=== PATIENT | male | born 1985 | race Caucasian/White ===

== ENCOUNTER 2018-05-01 12:47 | Emergency (ER) | payer OTHER | END 2018-05-01 13:09 | disposition home or self-care (01) | LOC: EDH 12:47 | DX: Z00.00 Encounter for general adult medical examination without abnormal findings (principal) | CPT/HCPCS: 99281 ==

== ENCOUNTER 2018-11-14 13:48 | Emergency (ER) | payer SELFPAY ==
[2018-11-14] MEDS ORDERED: KETOROLAC TROMETHAMINE 60 MG/2 ML VIAL ONE (14:04)
== END 2018-11-14 14:46 | disposition home or self-care (01) ==
LOC: EDH 13:48
DX: M25.572 Pain in left ankle and joints of left foot (principal); Z72.0 Tobacco use
CPT/HCPCS: 73600; 96372; 99283; J1885

== ENCOUNTER 2018-12-16 13:42 | Emergency (ER) | payer OTHER ==
[2018-12-16] MEDS ORDERED: KETOROLAC TROMETHAMINE 30MG/ML ONE (14:26)
== END 2018-12-16 15:00 | disposition home or self-care (01) ==
LOC: EDH 13:42
DX: M25.572 Pain in left ankle and joints of left foot (principal); Z72.0 Tobacco use
CPT/HCPCS: 96372 ×2; 99283; J1030; J1885

== ENCOUNTER 2021-10-16 16:55 | Emergency (ER) | payer OTHER ==
[~2021-10-16] VITALS: Ht 167.6 cm; Wt 56.7 kg
[2021-10-16] MEDS ORDERED: CLINDAMYCIN IVPB 900MG/50ML 50 ML IV STA (17:31)
[2021-10-16 17:40] LABS: BASOPHILS % (AUTO) 0.3 % (0.0-5.0); EOSINOPHILS % (AUTO) 0.3 % (0.0-8.0); HEMATOCRIT 42.2 % (42-54); LYMPHOCYTES % (AUTO) 7.8 % (21.0-51.0); MEAN CORPUSCULAR HGB CONC 34.1 g/dL (32.0-36.0); MEAN CORPUSCULAR VOLUME 85.1 fL (79-99); MONOCYTES % (AUTO) 9.1 % (3.0-13.0); NEUTROPHILS % (AUTO) 82.1 % (40.0-77.0); PLATELET COUNT (AUTO) 233 K/uL (130-400); RED BLOOD CELL COUNT(AUTO) 4.96 MIL/uL (4.50-6.20); RED CELL DISTRIBUTION WIDTH 13.2 % (11.0-15.5); WHITE BLOOD COUNT (AUTO) 17.6 K/uL (4.8-10.8)
[2021-10-16 17:49] LABS: CREATININE 0.9 mg/dL (0.5-1.5); POTASSIUM 3.7 mmol/L (3.5-5.1)
[2021-10-16 17:54] LABS: ALBUMIN 3.9 g/dL (3.5-5.0); BILIRUBIN,TOTAL 0.6 mg/dL (0.2-1.0); CRP QUANTITATIVE 115.2 mg/L (0.00-9.0); TOTAL PROTEIN, SERUM 7.7 g/dL (6.0-8.3)
[2021-10-16] MEDS ORDERED: IOHEXOL-350 75 ML VIAL IV ONE (17:59)
[2021-10-16] MEDS ORDERED: ONDANSETRON 4MG INJ IVP ONE (18:00)
[2021-10-16] MEDS ORDERED: MORPHINE 4 MG SYG IM ONE (18:00)
[2021-10-16] MEDS ORDERED: 0.9%NACL 1000ML 1,000 ML IV ONE (18:00)
[2021-10-16 18:26] LABS: APPEARANCE,URINE Clear (CLEAR); BILIRUBIN,URINE Small (NEGATIVE); COLOR,URINE Dark Yellow (YELLOW); GLUCOSE, URINE (UA) Negative (NEGATIVE); KETONES,URINE Trace mg/dL (NEGATIVE); LEUKOCYTE ESTERASE ,URINE Trace (NEGATIVE); NITRATE,URINE Negative (NEGATIVE); OCCULT BLOOD,URINE Negative (NEGATIVE); PROTEIN,URINE POS 2+ mg/dL (NEGATIVE)
[2021-10-16 18:40] LABS: BACTERIA,URINE Few /HPF (None Seen); MUCUS,URINE Moderate LPF (None Seen); SQUAMOUS EPITHELIAL CELL,UR Few /HPF (0-2)
[2021-10-16 19:49] VITALS: BP 129/53
[2021-10-16] MEDS ORDERED: IBUP-2070 PO (20:49)
[2021-10-16] MEDS ORDERED: CLIN-141 PO (20:49)
== END 2021-10-16 20:58 | disposition left against medical advice (07) ==
LOC: EDH 16:55
DX: L02.31 Cutaneous abscess of buttock (principal); D72.829 Elevated white blood cell count, unspecified; Z20.822 Contact with and (suspected) exposure to COVID-19; Z79.1 Long term (current) use of non-steroidal anti-inflammatories (NSAID); Z79.899 Other long term (current) drug therapy
CPT/HCPCS: 36415; 72193; 80053; 81001; 83605; 84484; 85025; 86140; 87040 ×2; 87088; 87635; 96365; 96372; 96375; 99285; C9803; J2270; J2405; J3490; J7030; Q9967

== ENCOUNTER 2021-10-18 22:51 | Inpatient (IN) | payer OTHER ==
[~2021-10-18] VITALS: Ht 167.6 cm; Wt 58.2 kg
[~2021-10-18 22:51] MED LIST: CLIN-141 PO; IBUP-2070 PO
[2021-10-18 23:35] LABS: BASOPHILS % (AUTO) 0.3 % (0.0-5.0); EOSINOPHILS % (AUTO) 0.7 % (0.0-8.0); HEMATOCRIT 38.8 % (42-54); LYMPHOCYTES % (AUTO) 15.2 % (21.0-51.0); MEAN CORPUSCULAR HGB CONC 34.5 g/dL (32.0-36.0); MEAN CORPUSCULAR VOLUME 81.2 fL (79-99); MONOCYTES % (AUTO) 10.3 % (3.0-13.0); NEUTROPHILS % (AUTO) 73.2 % (40.0-77.0); PLATELET COUNT (AUTO) 342 K/uL (130-400); RED BLOOD CELL COUNT(AUTO) 4.78 MIL/uL (4.50-6.20); RED CELL DISTRIBUTION WIDTH 12.9 % (11.0-15.5); WHITE BLOOD COUNT (AUTO) 11.6 K/uL (4.8-10.8)
[2021-10-18 23:35] LABS: APPEARANCE,URINE Clear (CLEAR); BILIRUBIN,URINE Negative (NEGATIVE); COLOR,URINE Yellow (YELLOW); GLUCOSE, URINE (UA) Negative (NEGATIVE); KETONES,URINE 40 mg/dL (NEGATIVE); LEUKOCYTE ESTERASE ,URINE Negative (NEGATIVE); NITRATE,URINE Negative (NEGATIVE); OCCULT BLOOD,URINE Negative (NEGATIVE); PROTEIN,URINE Trace mg/dL (NEGATIVE)
[2021-10-18] MEDS ORDERED: ZOSYN 3.375GM +NS 50ML IV STA (23:45)
[2021-10-18] MEDS ORDERED: VANCOMYCIN KIT 1 GM/250 ML IV.KIT IV ONE (23:45)
[2021-10-18 23:46] LABS: CREATININE 0.9 mg/dL (0.5-1.5); POTASSIUM 3.2 mmol/L (3.5-5.1)
[2021-10-18 23:48] LABS: INR 1.14 (0.85-1.15); PROTHROMBIN TIME 12.3 SEC (9.6-11.6)
[2021-10-18 23:50] LABS: PARTIAL THROMBOPLASTIN TIME 29.6 SEC (26.3-35.5)
[2021-10-18 23:51] LABS: ALBUMIN 3.6 g/dL (3.5-5.0); BILIRUBIN,TOTAL 0.6 mg/dL (0.2-1.0); TOTAL PROTEIN, SERUM 7.8 g/dL (6.0-8.3)
[2021-10-19] MEDS ORDERED: VANCOMYCIN PROTOCOL PER PHARMACY IV PRN
[2021-10-19] MEDS ORDERED: ONDANSETRON 4MG INJ IV PRN
[2021-10-19] MEDS ORDERED: LACTATED RINGERS 1000ML 1,000 ML IV SCH
[2021-10-19 00:18] LABS: RBC,URINE 0-1 /HPF (0-1); WBC,URINE 0-1 /HPF (0-1)
[2021-10-19 00:19] LABS: BACTERIA,URINE None Seen /HPF (None Seen); SQUAMOUS EPITHELIAL CELL,UR None Seen /HPF (0-2)
[2021-10-19] MEDS ORDERED: KCL 20 MEQ ERTAB PO ONE (01:30)
[2021-10-19] MEDS ORDERED: NICOTINE 21 MG/ 24 HR PATCH TD PRN (01:30)
[2021-10-19] MEDS: ZOSYN 3.375GM+NS 50ML 50 ML IV SCH ×3 (04:53→21:00)
[2021-10-19 06:18] LABS: BASOPHILS % (AUTO) 0.5 % (0.0-5.0); EOSINOPHILS % (AUTO) 0.9 % (0.0-8.0); HEMATOCRIT 38.5 % (42-54); LYMPHOCYTES % (AUTO) 16.9 % (21.0-51.0); MEAN CORPUSCULAR HGB CONC 33.8 g/dL (32.0-36.0); MEAN CORPUSCULAR VOLUME 82.8 fL (79-99); MONOCYTES % (AUTO) 9.9 % (3.0-13.0); NEUTROPHILS % (AUTO) 71.5 % (40.0-77.0); PLATELET COUNT (AUTO) 323 K/uL (130-400); RED BLOOD CELL COUNT(AUTO) 4.65 MIL/uL (4.50-6.20); WHITE BLOOD COUNT (AUTO) 9.2 K/uL (4.8-10.8)
[2021-10-19 06:25] LABS: INR 1.15 (0.85-1.15); PROTHROMBIN TIME 12.4 SEC (9.6-11.6)
[2021-10-19 06:27] LABS: PARTIAL THROMBOPLASTIN TIME 30.1 SEC (26.3-35.5)
[2021-10-19 06:30] LABS: CREATININE 0.7 mg/dL (0.5-1.5); PHOSPHORUS 3.7 mg/dL (2.5-4.9); POTASSIUM 3.9 mmol/L (3.5-5.1)
[2021-10-19] MEDS ORDERED: VANCOMYCIN 1.5GM/NS 250ML IV SCH ×2 (08:30)
[2021-10-19] MEDS: FAMOTIDINE 20MG VIAL IV SCH ×2 (08:55→21:00)
[2021-10-19] MEDS ORDERED: 0.9%NACL 50ML 50 ML IV ONE ×2 (13:08→20:27)
[2021-10-19] MEDS ORDERED: LACTULOSE 20 GM/30 ML UDCUP PO ONE (13:30)
[2021-10-19] MEDS: FLUCONAZOLE 200 MG/NS 100 ML 100 ML IV SCH (14:15)
[2021-10-19] MEDS ORDERED: 0.9%NACL 1000ML 1,000 ML IV ONE (20:26)
[2021-10-19] MEDS: VANCOMYCIN 750MG VIAL IVPB SCH (23:25)
[2021-10-20] MEDS ORDERED: DIPHENHYDRAMINE HCL 25 MG CAPSULE PO PRN
[2021-10-20] MEDS ORDERED: HYDROCODONE/ACETAMINOPHEN 5/325 MG TAB PO PRN
[2021-10-20 06:03] LABS: BASOPHILS % (AUTO) 1.2 % (0.0-5.0); EOSINOPHILS % (AUTO) 1.4 % (0.0-8.0); HEMATOCRIT 35.7 % (42-54); LYMPHOCYTES % (AUTO) 25.6 % (21.0-51.0); MEAN CORPUSCULAR HEMOGLOBIN 28.2 pg (27.0-33.0); MEAN CORPUSCULAR HGB CONC 34.5 g/dL (32.0-36.0); MEAN CORPUSCULAR VOLUME 81.9 fL (79-99); MONOCYTES % (AUTO) 10.8 % (3.0-13.0); NEUTROPHILS % (AUTO) 60.6 % (40.0-77.0); PLATELET COUNT (AUTO) 298 K/uL (130-400); RED BLOOD CELL COUNT(AUTO) 4.36 MIL/uL (4.50-6.20); WHITE BLOOD COUNT (AUTO) 7.8 K/uL (4.8-10.8)
[2021-10-20 06:13] LABS: HEMOGLOBIN A1C 5.7 % (4.0-6.0)
[2021-10-20] MEDS: ZOSYN 3.375GM+NS 50ML 50 ML IV SCH ×3 (06:14→19:52)
[2021-10-20] MEDS ORDERED: 0.9%NACL 100ML 100 ML ONE (06:23)
[2021-10-20 07:04] LABS: ERYTHROCYTE SEDIMENTATION RATE 21 MM/HR (0-15)
[2021-10-20] MEDS: VANCOMYCIN 750MG VIAL IVPB SCH ×3 (09:51→21:17)
[2021-10-20] MEDS: FAMOTIDINE 20MG VIAL IV SCH ×2 (09:51→19:52)
[2021-10-20] MEDS: 0.9% NACL 250ML 250 ML IV SCH ×2 (09:51→21:17)
[2021-10-20 12:00] VITALS: BP 125/54
[2021-10-20] MEDS: FLUCONAZOLE 200 MG/NS 100 ML 100 ML IV SCH (14:12)
[2021-10-20 16:00] VITALS: BP 120/64
[2021-10-20 20:21] VITALS: BP 127/66
[2021-10-21 00:10] VITALS: BP 133/86
[2021-10-21] MEDS: ZOSYN 3.375GM+NS 50ML 50 ML IV SCH (04:19)
[2021-10-21] MEDS: VANCOMYCIN 750MG VIAL IVPB SCH (04:19)
[2021-10-21] MEDS: 0.9% NACL 250ML 250 ML IV SCH (04:19)
[2021-10-21 04:35] VITALS: BP 137/83
[2021-10-21 07:36] VITALS: BP 132/73
[2021-10-21] MEDS: FAMOTIDINE 20MG VIAL IV SCH (10:17)
[2021-10-21 11:41] VITALS: BP 126/55
[2021-10-21] MEDS ORDERED: SULF1TAB42 PO (13:10)
== END 2021-10-21 14:05 | disposition home or self-care (01) | DRG 603 ==
LOC: EDH 22:51 → EDHIP 23:47 → 3CH 10-20 09:52
PROVIDERS: ADMIT Internal Medicine; ATTEND Internal Medicine
DX: L02.31 Cutaneous abscess of buttock (principal); L03.317 Cellulitis of buttock; F17.210 Nicotine dependence, cigarettes, uncomplicated; F12.90 Cannabis use, unspecified, uncomplicated; E87.6 Hypokalemia; Z20.822 Contact with and (suspected) exposure to COVID-19; B35.4 Tinea corporis; B35.9 Dermatophytosis, unspecified
CPT/HCPCS: 36415; 72192; 76857; 80048; 80053; 80202; 81001; 82550; 83036; 83605; 83735; 84100; 84145; 84484; 85025; 85610; 85651; 85730; 86140; 86850; 86900; 86901; 87040; 87070; 87076; 87077; 87088; 87186; 87635; 93005; G0378; J1450; J2543; J3370; J3490; J7030; J7050; J7120; Q0163